=== PATIENT | female | born 1965 | race Caucasian/White ===

== ENCOUNTER 2021-03-15 10:00 | Emergency (ER) | payer OTHER ==
[~2021-03-15] VITALS: Ht 162.6 cm; Wt 86.7 kg
[2021-03-15 10:01] VITALS: BP 134/92
--- NOTE | 2021-03-15 10:06 | NUR ---
SASCHA Sanderson from home s/p friend called for wellness check. Pt states she is not sure if she wants to hurt herself or not, she says she does not want to hurt anyone else but doesn't want to talk about it. Pt is schizoeffective with recent change in medications. Belongings removed, room secured, sitter in line of site. [facility] BG 202 Covid vaccine pfeizer x 2
--- NOTE | 2021-03-15 10:33 | NUR ---
TOM PSYCH UNDERGROUND DISTRIBUTION ENGINEER AT BEDSIDE FOR EVALUATION.
--- NOTE | 2021-03-15 10:34 | NUR ---
ERMD AT BEDSIDE FOR EVALUATION.
--- NOTE | 2021-03-15 11:01 | NUR ---
PATIENT PROVIDED FOOD TRAY, REFUSED AT THIS TIME. PATIENT AMBULATED TO BATHROOM WITH STEADY GAIT FOR URINE SAMPLE.
--- NOTE | 2021-03-15 11:10 | NUR ---
URINE COLLECTED AND SENT TO LAB, PATIENT BACK IN [facility], SUICIDE PRECAUTIONS IN PLACE, SITTER IN LINE OF SIGHT.
[2021-03-15 11:13] LABS: BASOPHILS % (AUTO) 1 % (0-1); EOSINOPHILS % (AUTO) 0 % (1-7); LYMPHOCYTES % (AUTO) 18 % (22-44); MEAN CORPUSCULAR HEMOGLOBIN 32.5 pg (27.0-34.8); MEAN CORPUSCULAR HGB CONC 33.9 g/dL (32.4-35.8); MEAN PLATELET VOLUME 8.2 fL (7.4-10.4); MONOCYTES % (AUTO) 7 % (2-9); NEUTROPHILS % (AUTO) 74 % (42-75); PLATELET COUNT 331 x10^3/uL (130-400); RED BLOOD COUNT 5.35 x10^6/uL (3.82-5.3); RED CELL DISTRIBUTION WIDTH 13.7 % (9.6-15.2)
[2021-03-15 11:21] LABS: ALBUMIN 4.2 g/dL (3.4-5.0); ANION GAP 7 mmol/L (5-15); CALCIUM 9.8 mg/dL (8.5-10.1); CHLORIDE 108 mmol/L (98-107); CREATININE 0.95 mg/dL (0.55-1.02); SALICYLATE LEVEL 4.7 mg/dL (2.8-20.0)
--- NOTE | 2021-03-15 11:23 | NUR ---
HOSPITAL BED ORDERED.
[2021-03-15 11:28] LABS: AMPHETAMINE SCREEN, URINE Negative (Negative); BARBITURATE SCREEN, URINE Negative (Negative); BENZODIAZEPINE SCREEN, URINE Negative (Negative); CANNABINOID SCREEN, URINE Negative (Negative); COCAINE SCREEN, URINE Negative (Negative); METHADONE SCREEN, URINE Negative (Negative); OPIATE SCREEN, URINE Negative (Negative)
[2021-03-15] MEDS ORDERED: PLEASE ENTER ALLERGIES MC SCH (12:00)
--- NOTE | 2021-03-15 12:06 | NUR ---
SPOKE WITH PATIENT'S FRIEND, SANDY, WHO CALLED [phone]. PER SANDY PATIENT WAS EXHIBITING PARANOID BEHAVIOR AND SUICIDAL THOUGHTS, AND SAYING SOMEONE IS AFTER HER. [phone] Addendum: 03/15/21 at 1209 by [email or web address] PER SANDY PATIENT WAS STATING "I'M GOING TO GET A GUN, AND I'M GOING TO LEAVE THE GAS ON."
--- NOTE | 2021-03-15 12:57 | NUR ---
Covering primary nurse for break, pt pacing in room asking to go home, remains redirectable.
--- NOTE | 2021-03-15 15:04 | NUR ---
PATIENT ASKING WHEN SHE WILL BE SEEN BY A PROVIDER AND CAN GO HOME. EXPLAINED TO PATIENT THAT TOM ALREADY SAW HER AND WE ARE AWAITING PLACEMENT FOR HER. PATIENT EASILY REDIRECTED AND ACKNOWLEDGED UNDERSTANDING. PATIENT NOW RESTING IN GURNEY, SUICIDE PRECAUTIONS IN PLACE, SITTER IN LINE OF SIGHT.
--- NOTE | 2021-03-15 16:09 | NUR ---
INSURANCE CARD PROVIDED TO REGISTRATION SO PLACEMENT FOR PATIENT CAN BE DONE.
[2021-03-15] MEDS ORDERED: ARIPIPRAZOLE 10 MG TABLET PO ONE (17:10)
[2021-03-15] MEDS ORDERED: VENLAFAXINE 75MG TABLET PO ONE (17:10)
--- NOTE | 2021-03-15 17:17 | NUR ---
PATIENT REPORTS SHE DID NOT TAKE HER ABILIFY AND EFFEXOR THIS MORNING EARLIER REPORTED. SPOKE WITH ERMD AND ORDER PLACED FOR BOTH MEDS.
[2021-03-15] MEDS ORDERED: ARIPIPRAZOLE 10 MG TABLET ONE (17:27)
--- NOTE | 2021-03-15 17:31 | NUR ---
PATIENT MEDICATED PER eMAR, REFUSING DINNER TRAY, TEARFUL AND ASKING WHEN SHE IS GOING TO [facility], INFORMED PATIENT WE ARE WORKING ON THE PAPERWORK TO GET HER WHERE SHE NEEDS TO BE, PATIENT ACKNOWLEDGED. SUICIDE PRECAUTIONS IN PLACE, SITTER IN LINE OF SIGHT.
--- NOTE | 2021-03-15 17:56 | NUR ---
COVID SWAB COLLECTED AND WALKED TO LAB.
--- NOTE | 2021-03-15 18:15 | NUR ---
ANAM HENDERSON, PATIENT'S FATHER CALLED, HIS PHONE NUMBER: [phone].
--- NOTE | 2021-03-15 18:47 | NUR ---
COVID SWAB RECOLLECTED DUE TO FIRST SWAB BEING INVALID WALKED SWAB TO LAB.
--- NOTE | 2021-03-15 18:54 | NUR ---
PATIENT'S DAD CAME TO GET HOUSE KEYS, PATIENT AWARE.
--- NOTE | 2021-03-15 19:03 | NUR ---
BEDSIDE REPORT FROM CATHI LENNON, ALL QUESTIONS ADDRESSED. SITTER IN SIGHT FOR SAFETY
--- NOTE | 2021-03-15 20:07 | NUR ---
ADDITIONAL COVID SWAB COLLECTED AND WALKED TO LAB AT THIS TIME
--- NOTE | 2021-03-15 20:36 | NUR ---
PT UP OUT OF BED INTERACTING WITH SITTER REQUESTING TO GO HOME WITH FATHER. PT EDUCATED THAT SHE WILL BE STAYING OVER NIGHT, EASILY REDIRECTED BACK TO BED AT THIS TIME, WARM BLANKET PROVIDED
--- NOTE | 2021-03-15 21:52 | NUR ---
PT RESTING ON HOSPITAL BED NADN RESP EVEN AND UNLABORED SITTER IN SIGHT FOR SAFETY
--- NOTE | 2021-03-15 22:14 | NUR ---
REPORT TO ADRIANA LENNON PT READY FOR TRANSFER TO [facility] AT THIS TIME
[2021-03-16] MEDS ORDERED: ARIPIPRAZOLE 10 MG TABLET PO SCH (09:00)
[2021-03-16] MEDS ORDERED: VENLAFAXINE 75MG TABLET PO SCH (09:00)
[2021-03-16] MEDS ORDERED: CARI3CAP PO (09:57)
[2021-03-16] MEDS ORDERED: ARIP10TA33 PO (09:57)
[2021-03-16] MEDS ORDERED: VENL37.52 PO (09:57)
== END 2021-03-15 22:36 ==
LOC: ED 11:12 → EDIP 12:06 → UNDOADMOB 12:06 → ED 22:30
DX: R45.851 Suicidal ideations (principal); Z20.822 Contact with and (suspected) exposure to COVID-19; F41.9 Anxiety disorder, unspecified; F32.9 Major depressive disorder, single episode, unspecified; R00.0 Tachycardia, unspecified; F25.9 Schizoaffective disorder, unspecified
CPT/HCPCS: 36415; 80048; 80299; 80307; 80320; 80329; 82040; 85025; 87426; 99285; G0480

== ENCOUNTER 2021-03-15 18:03 | Inpatient (IN) | payer OTHER ==
[~2021-03-15] VITALS: Ht 162.6 cm; Wt 84.6 kg
[2021-03-15] MEDS ORDERED: POLYETHYLENE GLYCOL 17 GM PACKET PO PRN (20:00)
[2021-03-15] MEDS ORDERED: DOCUSATE 100 MG CAPSULE PO PRN (20:00)
[2021-03-15] MEDS ORDERED: BISACODYL 10 MG SUPP PR PRN (20:00)
[2021-03-15] MEDS ORDERED: ONDANSETRON ODT 4 MG PO PRN (20:00)
[2021-03-15 23:38] VITALS: BP 119/89
[2021-03-16] MEDS: ACETAMINOPHEN 325 MG TABLET PO PRN ×3 (01:13→17:21)
[2021-03-16 07:26] LABS: ALANINE AMINOTRANSFERASE 40 U/L (12-78); ALBUMIN 3.5 g/dL (3.4-5.0); ALKALINE PHOSPHATASE 143 U/L (45-117); BILIRUBIN, DIRECT 0.2 mg/dL (0.1-0.2); BILIRUBIN,INDIRECT 0.5 mg/dL (0.0-2.0); BILIRUBIN,TOTAL 0.7 mg/dL (0.2-1.0); CHOL/HDL RATIO 5.8; CHOLESTEROL, TOTAL 190 mg/dL (140-239); FREE T4 (FREE THYROXINE) 1.08 ng/dL (0.76-1.46); HDL CHOL % 17 % (28-40); HDL CHOLESTEROL (DIRECT) 33 mg/dL (40-60); LDL CHOLESTEROL,CALCULATED 129 mg/dL (54-169); LDL/HDL RATIO 3.9 (0.5-3.0); TOTAL PROTEIN 7.3 g/dL (6.4-8.2); TRIGLYCERIDES 140 mg/dL (50-200); VLDL CHOLESTEROL 28 mg/dL (0-25)
[2021-03-16 07:44] VITALS: BP 100/67
[2021-03-16] MEDS: VENLAFAXINE 75MG TABLET PO SCH (08:16)
[2021-03-16] MEDS: CYANOCOBALAMIN 1,000 MCG TABLET PO SCH (08:27)
[2021-03-16] MEDS: POTASSIUM CHLORIDE 20 MEQ TAB.ER.PRT PO SCH ×2 (08:27→17:21)
[2021-03-16] MEDS: NICOTINE 14MG/24 HR PATCH.TD24 TD SCH (08:29)
[2021-03-16] MEDS ORDERED: CYANOCOBALAMIN 1,000 MCG/ML, 1ML IM ONE (08:30)
[2021-03-16] MEDS ORDERED: ARIPIPRAZOLE 10 MG TABLET PO SCH (09:00)
[2021-03-16] MEDS ORDERED: VENL37.52 PO (09:57)
[2021-03-16] MEDS ORDERED: ARIP10TA33 PO (09:57)
[2021-03-16] MEDS ORDERED: CARI3CAP PO (09:57)
[2021-03-16 18:48] VITALS: BP 104/74
[2021-03-16] MEDS: ARIPIPRAZOLE 15 MG TABLET PO SCH (20:38)
[2021-03-17 06:48] VITALS: BP 103/64
[2021-03-17 07:10] LABS: ANION GAP 4 mmol/L (5-15); CALCIUM 8.9 mg/dL (8.5-10.1); CHLORIDE 108 mmol/L (98-107)
[2021-03-17 07:13] LABS: CREATININE 0.62 mg/dL (0.55-1.02)
[2021-03-17] MEDS: CYANOCOBALAMIN 1,000 MCG TABLET PO SCH (08:36)
[2021-03-17] MEDS: VENLAFAXINE 75MG TABLET PO SCH (08:37)
[2021-03-17] MEDS: NICOTINE 14MG/24 HR PATCH.TD24 TD SCH (08:38)
[2021-03-17] MEDS: ACETAMINOPHEN 325 MG TABLET PO PRN ×2 (08:41→20:49)
[2021-03-17] MEDS: POTASSIUM CHLORIDE 20 MEQ TAB.ER.PRT PO SCH (17:20)
[2021-03-17 19:36] VITALS: BP 96/64
[2021-03-17] MEDS: ARIPIPRAZOLE 15 MG TABLET PO SCH (20:50)
[2021-03-18 07:56] VITALS: BP 94/67
[2021-03-18 08:19] LABS: MICROSCOPIC INDICATED
[2021-03-18] MEDS: VENLAFAXINE 75MG TABLET PO SCH (08:53)
[2021-03-18] MEDS: NICOTINE 14MG/24 HR PATCH.TD24 TD SCH (08:53)
[2021-03-18] MEDS: CYANOCOBALAMIN 1,000 MCG TABLET PO SCH (08:53)
[2021-03-18] MEDS: ACETAMINOPHEN 325 MG TABLET PO PRN (08:55)
[2021-03-18] MEDS: POTASSIUM CHLORIDE 20 MEQ TAB.ER.PRT PO SCH (17:00)
[2021-03-18 19:31] VITALS: BP 100/68
[2021-03-18] MEDS: ARIPIPRAZOLE 15 MG TABLET PO SCH (20:01)
[2021-03-19 07:44] VITALS: BP 105/73
[2021-03-19] MEDS: CYANOCOBALAMIN 1,000 MCG TABLET PO SCH (08:50)
[2021-03-19] MEDS: NICOTINE 14MG/24 HR PATCH.TD24 TD SCH (08:51)
[2021-03-19] MEDS: VENLAFAXINE 75MG TABLET PO SCH (08:51)
== END 2021-03-19 14:14 | disposition home or self-care (01) | DRG 885 ==
LOC: 3E 22:40
PROVIDERS: ADMIT Psychiatry & Neurology Psychosomatic Medicine; ATTEND Psychiatry & Neurology Psychosomatic Medicine
DX: F25.0 Schizoaffective disorder, bipolar type (principal); Z60.2 Problems related to living alone; F17.210 Nicotine dependence, cigarettes, uncomplicated; E87.6 Hypokalemia; E53.8 Deficiency of other specified B group vitamins; Z79.899 Other long term (current) drug therapy; Z81.8 Family history of other mental and behavioral disorders
CPT/HCPCS: 36415; 71045; 80048; 80061; 80076; 81001; 82607; 83735; 84100; 84439; 84443; 84703; 93005; J3420